=== PATIENT | male | born 1985 | race Caucasian/White ===

== ENCOUNTER 2018-01-14 01:07 | Emergency (ER) | payer MEDICAID ==
[~2018-01-14] VITALS: Ht 172.7 cm; Wt 68.0 kg
[2018-01-14 01:46] LABS: HEMATOCRIT 49.7 % (42.0-52.0); HEMOGLOBIN 16.9 gm/dL (14.0-18.0); MCH 31.7 pg (26.0-34.0); MCV 93.2 fL (80.0-100.0); NUCLEATED RBCS 0 /100WBC; PLATELET COUNT* 255 thou/uL (150-400); RBC 5.33 mil/uL (4.50-6.00); WBC 25.1 thou/uL (4.0-11.0)
[2018-01-14] MEDS ORDERED: OMEPRAZOLE20 M2 PO (01:47)
[2018-01-14] MEDS ORDERED: EFFEXOR XR75 MG PO (01:47)
[2018-01-14] MEDS ORDERED: CHLORPROMAZINE25 M1 PO (01:47)
[2018-01-14 01:57] LABS: CALCIUM 9.2 mg/dL (8.5-10.1); POTASSIUM 4.7 mmol/L (3.5-5.1)
[2018-01-14 02:02] LABS: ALBUMIN 4.8 g/dL (3.4-5.0); TOTAL BILIRUBIN 0.4 mg/dL (<0.1-1.0)
[2018-01-14 02:11] LABS: ALCOHOL 213 mg/dL (<10); SALICYLATE 4.3 mg/dL (2.8-20.0)
[2018-01-14 02:22] LABS: ACETAMINOPHEN < 2 ug/mL (10-30)
[2018-01-14 02:53] LABS: ABSOLUTE EOSINOPHILS 0.5 thou/uL (0.0-0.7); ABSOLUTE LYMPHOCYTES 4.5 thou/uL (0.8-5.3); ABSOLUTE NEUTROPHILS 19.1 thou/uL (1.6-8.1)
[2018-01-14 02:55] LABS: PLATELET ESTIMATE ADEQUATE
[2018-01-14 10:07] LABS: URINE BILIRUBIN NEGATIVE (Negative); URINE BLOOD NEGATIVE (Negative); URINE CLARITY CLEAR; URINE COLOR YELLOW; URINE GLUCOSE-RANDOM NEGATIVE (Negative); URINE KETONES NEGATIVE (Negative); URINE LEUKOCYTES-REFLEX NEGATIVE (Negative); URINE NITRITE-REFLEX NEGATIVE (Negative); URINE PROTEIN TRACE (Negative); URINE SPECIFIC GRAVITY >= 1.030 (1.005-1.030); URINE UROBILINOGEN 0.2 E.U./dl (0.2-1.0)
[2018-01-14 10:19] LABS: AMP/METHAMP Negative (Negative); BARBITURATES Negative (Negative); BENZODIAZEPINES Negative (Negative); COCAINE Negative (Negative); METHADONE Negative (Negative); OPIATES Negative (Negative); PCP Negative (Negative); THC Negative (Negative)
[2018-01-14 14:25] VITALS: BP 147/95
== END 2018-01-14 14:25 | disposition home or self-care (01) ==
LOC: M.ERS 01:07
PROVIDERS: Emergency Medicine
DX: F32.9 Major depressive disorder, single episode, unspecified (principal); F20.9 Schizophrenia, unspecified; F90.9 Attention-deficit hyperactivity disorder, unspecified type; F43.10 Post-traumatic stress disorder, unspecified; F17.200 Nicotine dependence, unspecified, uncomplicated

== ENCOUNTER 2018-01-19 11:27 | Emergency (ER) | payer MEDICAID ==
[~2018-01-19] VITALS: Ht 182.9 cm; Wt 68.0 kg
[~2018-01-19 11:27] MED LIST: CHLORPROMAZINE25 M1 PO; EFFEXOR XR75 MG PO; OMEPRAZOLE20 M2 PO
[2018-01-19] MEDS ORDERED: TRAZODONE HCL50 MG PO (11:40)
[2018-01-19] MEDS ORDERED: MOBIC7.5 MG PO (13:00)
[2018-01-19 13:13] VITALS: BP 133/87
== END 2018-01-19 13:14 | disposition home or self-care (01) ==
LOC: M.ERS 11:27
DX: G89.29 Other chronic pain (principal); M54.5 Low back pain; Z59.0 Homelessness; F25.9 Schizoaffective disorder, unspecified; F31.9 Bipolar disorder, unspecified